=== PATIENT | male | born 1970 ===

== ENCOUNTER 2023-08-21 07:23 | Emergency (ER) | payer OTHER, SELFPAY ==
[2023-08-21] VITALS (12 sets, daily range): BP systolic 90–135; BP diastolic 51–101; PULSE 74–95; RESP 12–43; TEMP 35.8; O2SAT 96–100
--- NOTE | ~2023-08-21 | XR_ITS ---
EXAMINATION: XR chest 1V portable INDICATION: Near syncope TECHNIQUE: Portable AP chest at 0853 hours COMPARISON: None available FINDINGS: The lungs are free of acute opacities. Subtle opacification of the left mid and lower hemit horax could reflect pleural effusion there is no pneumothorax. The cardiomediastinal silhouette is no rmal. IMPRESSION: 1. Possible left pleural effusion. Reviewed, dictated and finalized at location B. [employer]
[2023-08-21] MEDS: SODIUM CHLORIDE 0.9% IV 1,000 ML 999 ML IV CONT ×2 (07:31→08:43)
[2023-08-21 07:52] LABS: Basophils Percent Auto 0.3 % (0.2-1.2); Eosinophils Absolute Auto 0.1 K/mm3 (0-0.3); Hematocrit 41.8 % (42.0-52.0); Hemoglobin 14.1 g/dL (14.0-18.0); Immature Granulocyte Absolute 0.02 K/mm3 (0.00-0.031); Immature Granulocyte Percent A 0.3 % (0-0.5); Lymphocytes Absolute Auto 2.02 K/mm3 (0.9-3.2); Lymphocytes Percent Auto 30.1 % (18.3-44.2); Mean Corpuscular HGB Conc 33.7 g/dl (32-36); Mean Corpuscular Hemoglobin 30.5 pg (26-34); Mean Corpuscular Volume 90.3 fl (80-100); Mean Platelet Volume 9.7 fl (7.4-10.4); Monocytes Absolute Auto 0.4 K/mm3 (0.1-0.6); Monocytes Percent Auto 6.3 % (2.6-8.5); Neutrophils Absolute Auto 4.2 K/mm3 (1.3-6.7); Platelet Count Result 265 k/mm3 (150-375); Red Blood Count 4.63 M/mm3 (4.6-6.20); Red Cell Distribution Width 12.4 % (11.5-14.5); White Blood Count 6.7 K/mm3 (4.5-10.0)
--- NOTE | 2023-08-21 08:38 | ED.SYNCOPE ---
HPI - Syncope General Chief Complaint: Dizziness Stated Complaint: dizzy Source: patient Limitations: no limitations History of Present Illness HPI narrative: Patient is a 53-year-old male presents to the emergency department complaining lightheadedness feeling he is going to pass out at approximately 5:30 a.m. this morning while sitting at his desk at work. Patient sat down because he felt he was going to pass out and the sensation past and has not returned. Patient admits to history of passing out 1 time in the past when he was getting blood drawn. Patient admits to consuming a breakfast sandwich this morning and had a Dr. Pepper in addition to small amount of water and believes she has been at adequately hydrated. Patient denies history of abnormal heart rhythms. Patient denies chest pain, difficulty breathing, abdominal pain, nausea vomiting, melena, hematochezia, diarrhea, fever, recent injuries, recent illness, urinary discomfort, numbness, weakness, headache, confusion. patient admits to stopping his losartan a days ago and his blood pressure was dropping and he has not seen his primary care physician about this yet been notes that his most recent Blood pressures have been in the 120-1 30s over 70s without the losartan. Patient admits to getting lightheaded frequently when he is getting out of shower. Patient denies history of blood clots or unilateral lower extremity swelling. Related Data Allergies Allergy/AdvReac Type Severity Reaction Status Date / Time mold Allergy Unknown Difficulty Verified 08/21/23 08:40 Breathing pollen extracts Allergy Unknown Difficulty Verified 08/21/23 08:40 Breathing Review of Systems Review of Systems: A 10 system review of systems was completed on the patient and is negative except for what is stated in the HPI. Nursing and ancillary documentation was reviewed. PMFSH Comments At time of signature, I have reviewed and agree with nursing past medical, surgical, social and family history unless otherwise noted. Please see the nursing chart for further information. There is no relevant family history pertinent to the presenting complaint. Exam Narrative: CONST: No acute distress. Well nourished. HENMT: Head is normocephalic and atraumatic. Tacky mucous membranes. No posterior oropharynx erythema. EYES: No conjunctival icterus, injection, or pallor. PERRL. NECK: No meningeal signs. RESP: Able to speak in full sentences. Normal respiratory effort. CTAB. CARDIO: Regular rate. Regular rhythm. 2+ DP and radial pulses bilaterally. GI: Nondistended. No tenderness to palpation. Soft. : No CVA tenderness to palpation. SKIN: No rashes or lesions noted on exposed skin. NEURO: Oriented x3. Moves all extremities. EXTREM/MSK/BACK: No pedal edema. PSYCH: Normal affect. Course Vital Signs Vital signs: Vital Signs Temperature 96.5 F L 08/21/23 07:03 Pulse Rate 88 08/21/23 07:03 Respiratory Rate 16 08/21/23 07:03 Blood Pressure 114/81 08/21/23 07:03 Pulse Oximetry 100 08/21/23 07:03 Oxygen Delivery Room Air 08/21/23 07:03 Temperature 96.5 F L 08/21/23 07:03 Pulse Rate 82 08/21/23 09:31 Respiratory Rate 13 08/21/23 09:31 Blood Pressure 121/83 08/21/23 09:31 Pulse Oximetry 100 08/21/23 09:31 Oxygen Delivery Room Air 08/21/23 07:03 MDM - Syncope MDM Narrative Medical decision making narrative: Patient presents with the above complaint. Initial vitals are remarkable for no significant abnormalities. Physical examination as noted above. Plan discussed: Laboratory analysis, EKG, chest x-ray, orthostatic blood pressures, continues cardiac monitoring, continuous pulse oximetry, 2 L of IV fluids normal saline for hydration. Patient was reassessed at the bedside. No changes in physical exam. Patient is in no acute distress. The patient has remained stable throughout the entire ED visit. Counseled patient regarding diagn
[2023-08-21 08:58] LABS: Magnesium 2.4 mg/dL (1.6-2.3)
[2023-08-21 09:10] LABS: NT Pro B Type Natriuretic Pept 34 pg/mL (19.9-100); Troponin I < 0.012 ng/mL (0.000-0.034)
[2023-08-21 09:34] LABS: Alanine Aminotransferase 21 U/L (6-50); Albumin Level 4.4 g/dL (3.5-5.1); Alkaline Phosphatase 68 U/L (38-126); Anion Gap 11 mmol/L (8-16); Aspartate Amino Transferase 21 U/L (17-59); Bilirubin,Total 0.6 mg/dL (0.2-1.3); Blood Urea Nitrogen 16 mg/dL (9-20); Calcium 9.9 mg/dL (8.4-10.2); Carbon Dioxide 26 mmol/L (22-30); Chloride 102 mmol/L (98-107); Estimated CRCL calculation 91 ml/min; Estimated Glomerular Filt Rate > 60; Glucose 108 mg/dL (65-110); Magnesium 2.3 mg/dL (1.6-2.3); Potassium 3.8 mmol/L (3.4-5.0); Sodium 139 mmol/L (137-145)
--- NOTE | 2023-08-21 10:05 | ECG_ITS ---
Measurements Intervals [place] Rate: 80 P: 27 WI: 155 QRS: -18 QRSD: 102 T: -9 QT: 376 QTc: 436 Interpretive Statements SINUS RHYTHM NO PREVIOUS ECG AVAILABLE FOR COMPARISON Electronically Signed On 08-21-2023 15:31:45 [employer] by Gricel James M.D.
== END 2023-08-21 10:30 | disposition home or self-care (01) ==
PROVIDERS: Emergency Provider Student in an Organized Health Care Education/Training Program
DX: R55 Syncope and collapse (principal)
CPT/HCPCS: 36415; 71045; 80053; 83735; 83880; 84443; 84484; 85025; 93005; 96360; 96361; 99284; J7030